=== PATIENT | male | born 1975 | race Caucasian/White ===

== ENCOUNTER 2023-11-20 20:16 | Emergency (ER) | payer MEDICAID ==
[~2023-11-20] VITALS: Ht 160 cm; Wt 57.0 kg
[2023-11-20 20:22] VITALS: O2SAT 99
[2023-11-20] MEDS ORDERED: BO1 TP (21:59)
[2023-11-20] MEDS ORDERED: CYCL5TAB MT (21:59)
[2023-11-20] MEDS ORDERED: ACET-2708 MT (21:59)
[2023-11-20] MEDS ORDERED: IBUP-2028 MT (21:59)
[2023-11-20] MEDS: KETOROLAC 60MG/2ML VIAL IM ONE (23:55)
[2023-11-20] MEDS: CYCLOBENZAPRINE 10MG TABLET PO ONE (23:55)
[2023-11-20] MEDS: ACETAMINOPHEN 325MG TABLET PO ONE (23:56)
[2023-11-20] MEDS: KETOROLAC 60MG/2ML VIAL IM NR (23:56)
[2023-11-20] MEDS: BACITRACIN ZINC OINT UDPKT TOP ONE (23:56)
[2023-11-20] MEDS: ACETAMINOPHEN 325MG TABLET PO NR (23:57)
[2023-11-20] MEDS: CYCLOBENZAPRINE 10MG TABLET PO NR (23:57)
[2023-11-20] MEDS: BACITRACIN ZINC OINT UDPKT TOP NR (23:57)
[2023-11-20 23:58] VITALS: BP 134/78; PULSE 75; RESP 18; TEMP 98.4
== END 2023-11-20 23:59 | disposition home or self-care (01) ==
LOC: ER 20:57
DX: S80.02XA Contusion of left knee, initial encounter (principal); S90.32XA Contusion of left foot, initial encounter; S16.1XXA Strain of muscle, fascia and tendon at neck level, initial encounter; X58.XXXA Exposure to other specified factors, initial encounter; Y93.89 Activity, other specified; Y92.89 Other specified places as the place of occurrence of the external cause; Y99.8 Other external cause status
CPT/HCPCS: 99284; 73560; 73630; 96372; J1885

== ENCOUNTER 2024-09-11 10:32 | Emergency (ER) | payer MEDICAID ==
[~2024-09-11] VITALS: Ht 162.6 cm; Wt 58.0 kg
[~2024-09-11 10:32] MED LIST: ACET-2708 MT; BO1 TP; CYCL5TAB3 MT; IBUP-2028 MT
[2024-09-11 10:49] VITALS: O2SAT 100
[2024-09-11] MEDS ORDERED: KETOROLAC 30MG/ML VIAL IM ONE (15:00)
[2024-09-11] MEDS: ONDANSETRON 4MG ODT PO ONE (15:13)
[2024-09-11] MEDS: VISCOUS LIDOCAINE 2% 15 ML UDC MM STA (15:50)
[2024-09-11] MEDS: MAGNESIUM/ALUMINUM HYDROXIDE/SIMETHICONE 30ML UDC PO ONE (15:50)
[2024-09-11] MEDS ORDERED: IBUP-2028 MT (16:05)
[2024-09-11] MEDS ORDERED: BROM118S47 PO (16:05)
[2024-09-11 17:03] VITALS: BP 124/76; PULSE 93; RESP 18; TEMP 37.1; O2SAT 98
== END 2024-09-11 17:14 | disposition home or self-care (01) ==
LOC: ER 10:32
DX: R05.9 Cough, unspecified (principal); Z98.890 Other specified postprocedural states; Z20.822 Contact with and (suspected) exposure to COVID-19
CPT/HCPCS: 99284; 71046; 87426; 87804 ×2; J1885; Q0162